=== PATIENT | female | born 1980 | race Caucasian/White ===

== ENCOUNTER 2020-12-12 17:25 | Inpatient (IN) | payer MEDICAID ==
[~2020-12-12] VITALS: Ht 162.6 cm; Wt 88.0 kg
[2020-12-12] MEDS ORDERED: ONDANSETRON HCL/PF 4 MG/2 ML VIAL IVP ONE (18:00)
[2020-12-12] MEDS ORDERED: IV NS 0.9% 1,000 ML BAG IV ONE (18:00)
[2020-12-12] MEDS ORDERED: DEXTROSE 50%-WATER 50 ML DISP.SYRIN ONE (18:41)
--- NOTE | 2020-12-12 19:05 | NUR ---
REC'D REPORT FROM HARDIK DURHAM FOR MIRIAM
[2020-12-12] MEDS ORDERED: HYDR-4077 PO (19:13)
[2020-12-12] MEDS ORDERED: PANT40TA2 PO (19:13)
[2020-12-12] MEDS ORDERED: ARIP15TA3 PO (19:13)
[2020-12-12] MEDS ORDERED: SEVE800T8 PO (19:13)
[2020-12-12] MEDS ORDERED: POLY17PO4 PO (19:13)
[2020-12-12] MEDS ORDERED: AMIT25TA9 PO (19:13)
[2020-12-12] MEDS ORDERED: FERR325T23 PO (19:13)
[2020-12-12] MEDS ORDERED: MIDO10TA PO (19:13)
[2020-12-12] MEDS ORDERED: SERT100T PO (19:13)
[2020-12-12] MEDS ORDERED: FOLI0.8T2 PO (19:13)
[2020-12-12] MEDS ORDERED: MELA3TAB41 PO (19:13)
[2020-12-12] MEDS ORDERED: VITA1TAB56 PO (19:13)
[2020-12-12] MEDS ORDERED: ONDA4TAB5 PO (19:13)
[2020-12-12] MEDS ORDERED: MULT-24 PO (19:13)
[2020-12-12] MEDS ORDERED: ZOLP5TAB8 PO (19:13)
[2020-12-12] MEDS ORDERED: LACT10SO3 PO (19:13)
[2020-12-12] MEDS ORDERED: HYDR-4076 PO (19:13)
[2020-12-12] MEDS ORDERED: GABA-532 PO (19:13)
[2020-12-12] MEDS ORDERED: LUBI24CA5 PO (19:13)
[2020-12-12] MEDS ORDERED: FAMO20TA8 PO (19:13)
[2020-12-12] MEDS ORDERED: LORA-259 PO (19:13)
[2020-12-12] MEDS ORDERED: ACET-868 PO (19:13)
[2020-12-12] MEDS ORDERED: METO25TA3 PO (19:13)
[2020-12-12] MEDS ORDERED: CALC667C6 PO (19:13)
[2020-12-12] MEDS ORDERED: METH5TAB2 PO (19:13)
[2020-12-12] MEDS ORDERED: BISA5TAB10 PO (19:13)
[2020-12-12] MEDS ORDERED: EPOE4000 SQ (19:13)
--- NOTE | 2020-12-12 19:15 | NUR ---
dulce from the [facility] for genralized weakness, w/ noted hypoglycemia, missed dialysis saturday. On 02 @ 2lpm via NC. connected to the monitor and pulse ox. kept comfortable, will continue to monitor accordingly.
[2020-12-12 19:17] LABS: BASOPHILS % (AUTO) 0.3 % (0.0-2.0); EOSINOPHILS % (AUTO) 0.7 % (0.0-6.0); HEMATOCRIT 27 % (33-45); HEMOGLOBIN 8.4 g/dL (11.5-14.8); LYMPHOCYTES # (AUTO) 1.5 /CMM (0.8-4.8); LYMPHOCYTES % (AUTO) 14.7 % (20.0-44.0); MEAN CORPUSCULAR HGB CONC 31 g/dl (31.0-36.0); MEAN CORPUSCULAR VOLUME 77 fL (82-100); MONOCYTES # (AUTO) 1.2 /CMM (0.1-1.30); MONOCYTES % (AUTO) 11.5 % (2.0-12.0); NEUTROPHILS # (AUTO) 7.6 /CMM (1.8-8.9); NEUTROPHILS % (AUTO) 72.8 % (43.0-81.0); PLATELET COUNT (AUTO) 163 /CMM (150-450); RED BLOOD CELL COUNT(AUTO) 3.52 MIL/uL (4.0-5.2); WHITE BLOOD COUNT (AUTO) 10.5 K/uL (4.3-11.0)
--- NOTE | 2020-12-12 19:25 | NUR ---
BLOOD SUGAR 163
[2020-12-12] MEDS ORDERED: DEXTROSE 50%-WATER 50 ML DISP.SYRIN IVP ONE (19:30)
--- NOTE | 2020-12-12 19:33 | NUR ---
report given Cher Gerardo for alexandrea
[2020-12-12 19:40] LABS: ALBUMIN 2.3 g/dL (3.4-5.0); BILIRUBIN,DIRECT 0.2 mg/dL (0.0-0.2); BILIRUBIN,TOTAL 0.4 mg/dL (0.2-1.0); CALCIUM, SERUM 8.7 mg/dL (8.5-10.1); TOTAL PROTEIN, SERUM 6.7 g/dL (6.4-8.2)
[2020-12-12 19:42] LABS: POTASSIUM 7.3 mmol/L (3.5-5.1)
[2020-12-12 19:43] LABS: CREATININE 8.5 mg/dL (0.6-1.3)
--- NOTE | 2020-12-12 19:50 | NUR ---
PER LAB K 7.3, BUN 149, AND CREATININE 8.5
[2020-12-12] MEDS ORDERED: SODIUM POLYSTYRENE SULFONATE 15 G/60 ML BOTTLE PO ONE (20:00)
[2020-12-12] MEDS ORDERED: SODIUM POLYSTYRENE SULFONATE 15 G/60 ML BOTTLE ONE (20:00)
[2020-12-12] MEDS ORDERED: SODIUM BICARBONATE SYR 50 MEQ/50 ML DISP.SYRIN IV ONE (20:00)
[2020-12-12] MEDS ORDERED: SODIUM BICARBONATE SYR 50 MEQ/50 ML DISP.SYRIN ONE (20:00)
[2020-12-12] MEDS ORDERED: ALBUTEROL FS 2.5 MG/3 ML VIAL.NEB NEB ONE (20:00)
[2020-12-12] MEDS ORDERED: CALCIUM CHLORIDE 1,000 MG/10 ML DISP.SYRIN IV ONE (20:00)
[2020-12-12] MEDS ORDERED: CALCIUM CHLORIDE 1,000 MG/10 ML DISP.SYRIN ONE (20:03)
--- NOTE | 2020-12-12 20:30 | NUR ---
RT AT BEDSIDE
[2020-12-12] MEDS ORDERED: ALBUTEROL FS 2.5 MG/3 ML VIAL.NEB ONE (20:40)
[2020-12-12] MEDS ORDERED: EPOETIN ALFA (4000 UNIT) 4,000 UNIT/ML VIAL SQ SCH (21:00)
[2020-12-12] MEDS ORDERED: MAG HYDROX/AL HYDROX/SIMETH 30 ML UDC PO PRN (21:00)
[2020-12-12] MEDS ORDERED: Z GUARD REMEDY 2 OZ OINT TP PRN (21:00)
[2020-12-12] MEDS ORDERED: ONDANSETRON HCL/PF 4 MG/2 ML VIAL IVP PRN (21:00)
[2020-12-12] MEDS ORDERED: BISACODYL (5 MG) 5 MG TABLET.DR PO PRN (21:00)
[2020-12-12] MEDS ORDERED: ACETAMINOPHEN 325 MG TABLET PO PRN ×2 (21:00)
[2020-12-12] MEDS ORDERED: HYDROCODONE/APAP 5/325MG TABLET PO PRN (21:00)
[2020-12-12] MEDS ORDERED: LORAZEPAM 1 MG TABLET PO PRN (21:00)
[2020-12-12] MEDS ORDERED: MAGNESIUM HYDROXIDE 30 ML UDC PO PRN (21:00)
[2020-12-12] MEDS ORDERED: hydrALAZINE HCL 25 MG TABLET PO PRN (21:00)
[2020-12-12] MEDS ORDERED: ZOLPIDEM TARTRATE 5 MG TABLET PO PRN (21:00)
[2020-12-12] MEDS ORDERED: Medication Not On Formulary EA (Melatonin 3 MG) PO PRN (21:00)
[2020-12-12] MEDS: AMITRIPTYLINE HCL 25 MG TABLET PO SCH (22:00)
--- NOTE | 2020-12-12 22:00 | NUR ---
elavil not given, med not available
--- NOTE | 2020-12-12 22:15 | NUR ---
LAB CALLED REGARDING NEGATIVE COVID RESULT.
--- NOTE | 2020-12-12 22:15 | NUR ---
SPOKE TO PHARMACY REGARDING HYDROCODONE ALLERGY. PT DENIES ANY ALLERGIES TO ANY MEDICATIONS.
[2020-12-12] MEDS ORDERED: METOPROLOL SUCCINATE 25 MG TAB.SR.24H ONE (22:28)
--- NOTE | 2020-12-12 22:28 | NUR ---
stoked meds pulled from third floor
[2020-12-12] MEDS ORDERED: METHADONE HCL 10 MG TABLET ONE (22:29)
[2020-12-12] MEDS ORDERED: MIDODRINE HCL (5MG) 5 MG TABLET PO PRN (22:30)
[2020-12-12] MEDS: METOPROLOL SUCCINATE 25 MG TAB.SR.24H PO SCH (22:30)
[2020-12-12] MEDS: hydrALAZINE HCL 50 MG TABLET PO SCH (22:30)
[2020-12-12] MEDS: METHADONE HCL 5 MG TABLET PO SCH (22:30)
[2020-12-12] MEDS ORDERED: ONDANSETRON 4 MG TAB.RAPDIS PO PRN (22:30)
--- NOTE | 2020-12-12 22:30 | NUR ---
HELD APRESOLINE D/T BP 106/55. TOPROL XL AND METHADONE GIVEN
--- NOTE | 2020-12-12 23:00 | NUR ---
pt readjusted and made comfortable
[2020-12-13] MEDS ORDERED: EPOETIN ALFA (10,000 UNIT) 10,000 UNIT/ML VIAL ONE (00:33)
[2020-12-13] MEDS ORDERED: EPOETIN ALFA (10,000 UNIT) 10,000 UNIT/ML VIAL SQ SCH (01:00)
[2020-12-13 04:46] LABS: BASOPHILS % (AUTO) 0.4 % (0.0-2.0); EOSINOPHILS % (AUTO) 1.1 % (0.0-6.0); HEMATOCRIT 27 % (33-45); HEMOGLOBIN 8.8 g/dL (11.5-14.8); LYMPHOCYTES # (AUTO) 1.2 /CMM (0.8-4.8); LYMPHOCYTES % (AUTO) 12.1 % (20.0-44.0); MEAN CORPUSCULAR HGB CONC 32 g/dl (31.0-36.0); MEAN CORPUSCULAR VOLUME 75 fL (82-100); MONOCYTES # (AUTO) 0.8 /CMM (0.1-1.30); MONOCYTES % (AUTO) 8.1 % (2.0-12.0); NEUTROPHILS # (AUTO) 7.5 /CMM (1.8-8.9); NEUTROPHILS % (AUTO) 78.3 % (43.0-81.0); PLATELET COUNT (AUTO) 164 /CMM (150-450); RED BLOOD CELL COUNT(AUTO) 3.64 MIL/uL (4.0-5.2); WHITE BLOOD COUNT (AUTO) 9.6 K/uL (4.3-11.0)
[2020-12-13 05:03] LABS: ALBUMIN 2.6 g/dL (3.4-5.0); BILIRUBIN,TOTAL 0.4 mg/dL (0.2-1.0); CALCIUM, SERUM 8.8 mg/dL (8.5-10.1); MAGNESIUM 2.2 mg/dL (1.8-2.4)
[2020-12-13 05:11] LABS: CREATININE 8.6 mg/dL (0.6-1.3); PHOSPHORUS 8.1 mg/dL (2.5-4.9); POTASSIUM 7.3 mmol/L (3.5-5.1)
[2020-12-13] MEDS ORDERED: hydrALAZINE HCL 25 MG TABLET ONE (05:21)
[2020-12-13] MEDS ORDERED: hydrALAZINE HCL 50 MG TABLET ONE (05:31)
--- NOTE | 2020-12-13 05:31 | NUR ---
apresoline stock meds were repeat orders. apresoline 50mg given
--- NOTE | 2020-12-13 05:40 | NUR ---
critical value of 7.[address] Shaffer made aware. No new orders.
[2020-12-13] MEDS: hydrALAZINE HCL 50 MG TABLET PO SCH ×3 (05:45→23:12)
[2020-12-13] MEDS ORDERED: METHADONE HCL 10 MG TABLET ONE (06:25)
[2020-12-13] MEDS: METHADONE HCL 5 MG TABLET PO SCH ×3 (06:30→21:33)
--- NOTE | 2020-12-13 06:35 | NUR ---
stock med methadone non admin. scheduled methadone given
--- NOTE | 2020-12-13 07:11 | NUR ---
gave report to HARDIK Watson for alexandrea
[2020-12-13] MEDS: PANTOPRAZOLE 40 MG TABLET.DR PO SCH (07:30)
[2020-12-13] MEDS ORDERED: INSULIN REGULAR, HUMAN 100 UNIT/ML 10 ML VIAL IV ONE (08:00)
[2020-12-13] MEDS: CALCIUM ACETATE 667 MG TABLET PO SCH ×3 (08:00→17:50)
[2020-12-13] MEDS ORDERED: DEXTROSE 50%-WATER 50 ML DISP.SYRIN IVP ONE (08:00)
[2020-12-13] MEDS ORDERED: SODIUM POLYSTYRENE SULFONATE 15 G/60 ML BOTTLE PO ONE (08:00)
[2020-12-13] MEDS ORDERED: CALCIUM CHLORIDE 1,000 MG/10 ML DISP.SYRIN IV ONE (08:00)
[2020-12-13] MEDS ORDERED: DEXTROSE 50%-WATER 50 ML DISP.SYRIN IV PRN (08:00)
[2020-12-13] MEDS: SEVELAMER CARBONATE 800 MG TABLET PO SCH ×3 (08:00→17:50)
[2020-12-13] MEDS ORDERED: SODIUM POLYSTYRENE SULFONATE 15 G/60 ML BOTTLE ONE (08:50)
[2020-12-13] MEDS ORDERED: DEXTROSE 50%-WATER 50 ML DISP.SYRIN ONE (08:51)
[2020-12-13] MEDS ORDERED: PANTOPRAZOLE 40 MG TABLET.DR PO ONE (08:51)
[2020-12-13] MEDS ORDERED: INSULIN REGULAR, HUMAN 100 UNIT/ML 10 ML VIAL ONE (08:51)
[2020-12-13] MEDS ORDERED: CALCIUM CHLORIDE 1,000 MG/10 ML DISP.SYRIN ONE (08:51)
[2020-12-13] MEDS: METOPROLOL SUCCINATE 25 MG TAB.SR.24H PO SCH ×2 (09:00→23:11)
[2020-12-13] MEDS ORDERED: Medication Not On Formulary EA (Lubiprostone (Amitiza) 24 MCG) PO SCH (09:00)
[2020-12-13] MEDS: LACTULOSE 10 G/15 ML UDC (PYXIS) PO SCH ×2 (09:00→12:43)
--- NOTE | 2020-12-13 10:20 | NUR ---
wheeled patient via gurney accompanied by RN and emt in no distress. RN at bedside to assume care.
--- NOTE | 2020-12-13 10:30 | NUR ---
ADM. PT. TO 3 WEST,ALERT AND ORIENTED X2-3.FORGETFUL AND POOR HISTORIAN.HOOKED UP TO TELE SR RATE OF 75 WITH FIRST DEGREE AV BLOCK.
[2020-12-13 12:00] VITALS: BP 118/40
[2020-12-13] MEDS: BLOOD SUGAR DIAGNOSTIC 1 EACH STRIP IN SCH ×3 (12:04→21:34)
[2020-12-13] MEDS: VITAMIN B COMP W-C 1 TAB TABLET PO SCH (12:43)
[2020-12-13] MEDS: SERTRALINE HCL 50 MG TABLET PO SCH (12:44)
[2020-12-13] MEDS: FAMOTIDINE (20 MG) 20 MG TABLET PO SCH (12:44)
[2020-12-13] MEDS: FERROUS SULFATE (325 MG) 325 MG/TAB TABLET PO SCH (12:44)
[2020-12-13] MEDS: MULTIVITAMINS,THERAGRAN 1 UDTAB TABLET PO SCH (12:44)
[2020-12-13] MEDS: GABAPENTIN 300 MG CAPSULE PO SCH ×3 (12:45→17:50)
[2020-12-13] MEDS: VIT B CMPLX 3/FA/VIT C/BIOTIN 1 TAB TABLET PO SCH (12:45)
[2020-12-13] MEDS: ARIPIPRAZOLE 5 MG TABLET PO SCH (12:45)
[2020-12-13] MEDS: POLYETHYLENE GLYCOL 3350 17 GM POWD.PACK PO SCH (13:00)
[2020-12-13 16:00] VITALS: BP 160/60
--- NOTE | 2020-12-13 18:00 | NUR ---
ASHLEE AMT. OF INCONTINENT YOCASTA. DIALYZED FOR SEVERAL HRS. TOLERATED WELL.
--- NOTE | 2020-12-13 19:58 | NUR ---
QUARANTINE INSPECTOR: CONTINUITY OF CARE Patient in bed, A/O x3 Forgetful. On Oxygen support, no c/o shortness of breath with exertion. Corey upper extremities limited movement d/t pain. Refused to be turned and repositioned. Education provided, verbalized understanding. Fall precaution maintained.
[2020-12-13 20:00] VITALS: BP 118/36
[2020-12-13 21:33] VITALS: BP 118/36
[2020-12-13] MEDS: AMITRIPTYLINE HCL 25 MG TABLET PO SCH (21:33)
[2020-12-13] MEDS: INSULIN REGULAR, HUMAN 100 UNIT/ML 3 ML VIAL SQ PRN (21:34)
[2020-12-13] MEDS: ZOLPIDEM TARTRATE 5 MG TABLET PO PRN (23:12)
[2020-12-13 23:15] VITALS: BP 140/68
--- NOTE | 2020-12-13 23:15 | NUR ---
VIRTUAL RECRUITER: BP Initial reading BP 118/36 pulse 94, on Apresoline and Toprol routine, notified CHAI Thornton. Rechecked manually BP 140/68 pulse 88. Given Apresoline and Toprol not on time.
[2020-12-14] VITALS (7 sets, daily range): BP systolic 121–144; BP diastolic 47–83
[2020-12-14] MEDS: METHADONE HCL 5 MG TABLET PO SCH ×3 (05:13→21:47)
[2020-12-14] MEDS: hydrALAZINE HCL 50 MG TABLET PO SCH ×3 (06:20→21:00)
[2020-12-14 06:23] LABS: BASOPHILS % (AUTO) 0.5 % (0.0-2.0); EOSINOPHILS % (AUTO) 7.8 % (0.0-6.0); HEMATOCRIT 25 % (33-45); HEMOGLOBIN 7.8 g/dL (11.5-14.8); LYMPHOCYTES # (AUTO) 1.4 /CMM (0.8-4.8); MEAN CORPUSCULAR HGB CONC 31 g/dl (31.0-36.0); MEAN CORPUSCULAR VOLUME 76 fL (82-100); MONOCYTES # (AUTO) 0.9 /CMM (0.1-1.30); MONOCYTES % (AUTO) 10.1 % (2.0-12.0); NEUTROPHILS # (AUTO) 5.8 /CMM (1.8-8.9); NEUTROPHILS % (AUTO) 65.6 % (43.0-81.0); PLATELET COUNT (AUTO) 144 /CMM (150-450); RED BLOOD CELL COUNT(AUTO) 3.28 MIL/uL (4.0-5.2); WHITE BLOOD COUNT (AUTO) 8.9 K/uL (4.3-11.0)
[2020-12-14] MEDS: BLOOD SUGAR DIAGNOSTIC 1 EACH STRIP IN SCH ×4 (06:47→21:39)
[2020-12-14] MEDS: INSULIN REGULAR, HUMAN 100 UNIT/ML 3 ML VIAL SQ PRN (06:48)
--- NOTE | 2020-12-14 07:07 | NUR ---
CHANGE LEAD: END OF SHIFT REPORT Oxygen support with 2L NC, no c/o sob with exertion. Sinus Rhythm HR 89 in the Tele monitor. Uncooperative with turning and repositioning, education provided on skin precaution. Shoulder, back pain controlled with Methadone. Fall precaution maintained. HD as scheduled. Will endorse to oncoming RN.
[2020-12-14 07:12] LABS: CALCIUM, SERUM 7.9 mg/dL (8.5-10.1); CREATININE 7.1 mg/dL (0.6-1.3); PHOSPHORUS 6.1 mg/dL (2.5-4.9); POTASSIUM 4.3 mmol/L (3.5-5.1)
--- NOTE | 2020-12-14 08:18 | NUR ---
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 RECOMMEND SURGICAL CONSULT. DR MEZA NOTIFIED OF CONSULT REQUEST. FIRST STEP LOW AIRLOSS MATTRESS ON ORDER. RECOMMENDATIONS MADE FOR SKIN PROTECTION. DISCUSSED WITH NURSING STAFF. MD IN AGREEMENT WITH PLAN OF CARE. Addendum: 12/14/20 at 0820 by STACEY OWENS [id number] Amended: Links added.
[2020-12-14] MEDS: SERTRALINE HCL 50 MG TABLET PO SCH (08:38)
[2020-12-14] MEDS: MULTIVITAMINS,THERAGRAN 1 UDTAB TABLET PO SCH (08:38)
[2020-12-14] MEDS: SEVELAMER CARBONATE 800 MG TABLET PO SCH ×3 (08:38→17:09)
[2020-12-14] MEDS: PANTOPRAZOLE 40 MG TABLET.DR PO SCH (08:39)
[2020-12-14] MEDS: VITAMIN B COMP W-C 1 TAB TABLET PO SCH (08:39)
[2020-12-14] MEDS: VIT B CMPLX 3/FA/VIT C/BIOTIN 1 TAB TABLET PO SCH (08:39)
[2020-12-14] MEDS: FERROUS SULFATE (325 MG) 325 MG/TAB TABLET PO SCH (08:39)
[2020-12-14] MEDS: GABAPENTIN 300 MG CAPSULE PO SCH ×3 (08:40→17:09)
[2020-12-14] MEDS: ARIPIPRAZOLE 5 MG TABLET PO SCH (08:40)
[2020-12-14] MEDS: FAMOTIDINE (20 MG) 20 MG TABLET PO SCH (08:40)
[2020-12-14] MEDS: CALCIUM ACETATE 667 MG TABLET PO SCH ×3 (08:40→17:09)
[2020-12-14] MEDS: POLYETHYLENE GLYCOL 3350 17 GM POWD.PACK PO SCH (08:41)
[2020-12-14] MEDS: METOPROLOL SUCCINATE 25 MG TAB.SR.24H PO SCH ×2 (08:41→21:50)
[2020-12-14] MEDS: LACTULOSE 10 G/15 ML UDC (PYXIS) PO SCH (08:41)
[2020-12-14] MEDS ORDERED: EPOETIN ALFA (10,000 UNIT) 10,000 UNIT/ML VIAL SQ SCH (09:00)
--- NOTE | 2020-12-14 09:00 | NUR ---
MS/RN S/B Jeremy DUMPER Seen by DUMPER - discharge planning for tomorrow.
--- NOTE | 2020-12-14 10:00 | NUR ---
MS/RN Labs Nicolette avalos reviewed: -H&H 7.07/05, epogen administered as ordered.
--- NOTE | 2020-12-14 11:30 | NUR ---
MS/RN Blood sugar Blood sugar at 1130 99, no coverage needed.
--- NOTE | 2020-12-14 13:00 | NUR ---
MS/RN S/B Wound care Seen by wound care - sacral wound debridement performed at bedside, dressing changes ordered.
--- NOTE | 2020-12-14 15:30 | NUR ---
MS/RN S/B Dr Norris Seen by Dr Norris - hemodialysis scheduled for tomorrow.
[2020-12-14 15:53] LABS: IRON, SERUM 42 ug/dl (50-175); TOTAL IRON BINDING CAPACITY 207 ug/dl (250-450)
--- NOTE | 2020-12-14 17:00 | NUR ---
MS/RN Blood sugar Blood sugar at 5p - 83, no coverage needed.
[2020-12-14] MEDS: HYDROGEL DRESSING 90 GM TUBE TP SCH (17:15)
--- NOTE | 2020-12-14 18:39 | NUR ---
MS/RN End note Patient remains in stable condition. All needs attended, all questions and concerns addressed. Will endores to cage shift manager.
--- NOTE | 2020-12-14 19:30 | NUR ---
MS RN OPENING NOTE RECEIVED PATIENT IN BED. A/OX3. ON OXYGEN L/MIN VIA NASAL CANNULA. OCCASIONAL REMOVES O2 WITH NO S/S RESP DISTRESS. C/O PAIN. INFORMED HER THAT METHADONE IS DUE AT 2100. AND THE MD IS AWARE THAT SHE IS REQUESTING ANOTHER PAIN MEDICATION BUT THEY DO NOT WANT TO ORDER ANYTHING ELSE PER DAY HARDIK ZELAYA. IN NO APPARENT DISTRESS. IV ACCESS IN RIGHT ARM PATENT AND SAINE LOCKED. BED IS LOW AND LOCKED, HOB ELEVATED IN SEMI ALONZO, SIDE RIALS UP X2, CALL LIGHT WITHIN REACH. WILL CONTINUE TO MONITOR THROUGHOUT SHIFT.
[2020-12-14] MEDS: AMITRIPTYLINE HCL 25 MG TABLET PO SCH (21:47)
[2020-12-14] MEDS: ZOLPIDEM TARTRATE 5 MG TABLET PO PRN (22:55)
[2020-12-15] MEDS: hydrALAZINE HCL 50 MG TABLET PO SCH ×2 (05:00→13:00)
[2020-12-15] MEDS: METHADONE HCL 5 MG TABLET PO SCH ×2 (06:28→13:29)
[2020-12-15] MEDS: BLOOD SUGAR DIAGNOSTIC 1 EACH STRIP IN SCH ×2 (06:41→12:00)
[2020-12-15 07:00] LABS: BASOPHILS # (AUTO) 0.1 /CMM (0.0-0.2); BASOPHILS % (AUTO) 0.8 % (0.0-2.0); EOSINOPHILS % (AUTO) 8.2 % (0.0-6.0); HEMATOCRIT 26 % (33-45); HEMOGLOBIN 8.3 g/dL (11.5-14.8); LYMPHOCYTES # (AUTO) 1.6 /CMM (0.8-4.8); LYMPHOCYTES % (AUTO) 20.4 % (20.0-44.0); MEAN CORPUSCULAR HGB CONC 32 g/dl (31.0-36.0); MEAN CORPUSCULAR VOLUME 76 fL (82-100); MONOCYTES # (AUTO) 0.8 /CMM (0.1-1.30); MONOCYTES % (AUTO) 10.2 % (2.0-12.0); NEUTROPHILS # (AUTO) 4.9 /CMM (1.8-8.9); NEUTROPHILS % (AUTO) 60.4 % (43.0-81.0); PLATELET COUNT (AUTO) 176 /CMM (150-450); WHITE BLOOD COUNT (AUTO) 8.1 K/uL (4.3-11.0)
--- NOTE | 2020-12-15 07:27 | NUR ---
MS RN CLOSING NOTE PATIENT RESTING IN BED. REMOVED O2 LAST NIGHT MULTIPLE TIMES, NO RESP DISTRESS. NO DISTRESS. IV ACCESS MAINTAINED IN RIGHT ARM. BED REMAINS LOW AND LOCKED, HOB ELEVATED IN SEMI ALONZO, SIDE RIALS UP X2, CALL LIGHT WITHIN REACH. WILL ENDORSE TO NEXT SHIFT.
[2020-12-15 07:58] LABS: CALCIUM, SERUM 8.3 mg/dL (8.5-10.1); CREATININE 7.4 mg/dL (0.6-1.3); MAGNESIUM 2.1 mg/dL (1.8-2.4); POTASSIUM 4.8 mmol/L (3.5-5.1)
[2020-12-15 08:00] VITALS: BP 158/74
[2020-12-15] MEDS: POLYETHYLENE GLYCOL 3350 17 GM POWD.PACK PO SCH ×2 (09:00→09:13)
[2020-12-15] MEDS: LACTULOSE 10 G/15 ML UDC (PYXIS) PO SCH ×2 (09:00→09:11)
[2020-12-15] MEDS: ARIPIPRAZOLE 5 MG TABLET PO SCH (09:13)
[2020-12-15] MEDS: GABAPENTIN 300 MG CAPSULE PO SCH ×2 (09:14→13:28)
[2020-12-15] MEDS: VITAMIN B COMP W-C 1 TAB TABLET PO SCH (09:14)
[2020-12-15] MEDS: CALCIUM ACETATE 667 MG TABLET PO SCH ×2 (09:14→13:28)
[2020-12-15] MEDS: SEVELAMER CARBONATE 800 MG TABLET PO SCH ×2 (09:14→13:29)
[2020-12-15] MEDS: FAMOTIDINE (20 MG) 20 MG TABLET PO SCH (09:14)
[2020-12-15] MEDS: VIT B CMPLX 3/FA/VIT C/BIOTIN 1 TAB TABLET PO SCH (09:14)
[2020-12-15 09:15] VITALS: BP 158/74
[2020-12-15] MEDS: METOPROLOL SUCCINATE 25 MG TAB.SR.24H PO SCH (09:15)
[2020-12-15] MEDS: PANTOPRAZOLE 40 MG TABLET.DR PO SCH (09:16)
[2020-12-15] MEDS: MULTIVITAMINS,THERAGRAN 1 UDTAB TABLET PO SCH (09:16)
[2020-12-15] MEDS: FERROUS SULFATE (325 MG) 325 MG/TAB TABLET PO SCH (09:16)
[2020-12-15] MEDS: SERTRALINE HCL 50 MG TABLET PO SCH (09:16)
[2020-12-15] MEDS: HYDROGEL DRESSING 90 GM TUBE TP SCH (09:19)
[2020-12-15] MEDS ORDERED: EPOETIN ALFA (10,000 UNIT) 10,000 UNIT/ML VIAL IV ONE (15:30)
--- NOTE | 2020-12-15 15:45 | NUR ---
Patient discharged via ambulance to [facility]. Patient is alert. oriented x 3. Continues on oxygen at 2 L/min via nasal cannula. VSS, afebrile. Remains incontinent of bowel and bladder. Refused pictures of wounds to buttocks and sacrum. HD today, 3 liters out, tolerated well. IV removed. aware of transfer. Report given to SHARON Zavaleta. All belongings sent with patient.
== END 2020-12-15 15:30 | DRG 425 ==
LOC: ER 18:30 → TRANSITION 20:55 → TELE 12-13 09:34 → MED 12-14 11:33
PROVIDERS: ADMIT Family Medicine; ATTEND Nurse Practitioner Acute Care
PROC: 5A1D70Z Performance of Urinary Filtration, Intermittent, Less than 6 Hours Per Day (ICD-10-PCS; principal; 2020-12-12)
PROC: 0JB70ZZ Excision of Back Subcutaneous Tissue and Fascia, Open Approach (ICD-10-PCS; 2020-12-14)
PROC: 0JB80ZZ Excision of Abdomen Subcutaneous Tissue and Fascia, Open Approach (ICD-10-PCS; 2020-12-14)
DX: E87.5 Hyperkalemia (principal); I12.0 Hypertensive chronic kidney disease with stage 5 chronic kidney disease or end stage renal disease; E43 Unspecified severe protein-calorie malnutrition; N18.6 End stage renal disease; Z99.2 Dependence on renal dialysis; E11.22 Type 2 diabetes mellitus with diabetic chronic kidney disease; D68.59 Other primary thrombophilia; Z89.511 Acquired absence of right leg below knee; L89.893 Pressure ulcer of other site, stage 3; E11.649 Type 2 diabetes mellitus with hypoglycemia without coma; Z88.5 Allergy status to narcotic agent; Z79.899 Other long term (current) drug therapy; D63.8 Anemia in other chronic diseases classified elsewhere; F17.200 Nicotine dependence, unspecified, uncomplicated; Z79.84 Long term (current) use of oral hypoglycemic drugs; Z74.09 Other reduced mobility
CPT/HCPCS: 36415; 71045-TC; 80048-TC; 80053-TC; 80061-TC; 80076-TC; 82962-TC; 83540-TC; 83690-TC; 83735-TC; 84100-TC; 84132-TC; 85025-TC; 86706; 87081-TC; 87340; 90935-TC; A6248; A6403; G0378; J0885; J1815; J2405; J3490; J7030; Q0162